=== PATIENT | female | born 1940 | race Caucasian/White ===

== ENCOUNTER 2017-04-01 13:02 | Inpatient (IN) | payer OTHER ==
[~2017-04-01] VITALS: Ht 165.1 cm; Wt 136.5 kg
[2017-04-01 13:47] LABS: Basophils # (auto) 0 uL; Basophils % (auto) 0.4 % (0.0-2.0); Eosinophils # (auto) 0.1 uL; Eosinophils % (auto) 0.8 % (0.0-7.0); Hematocrit 39.5 % (36.0-46.0); Hemoglobin 13.2 g/dL (12.2-16.2); Lymphocytes # (auto) 1.2 uL; Lymphocytes % (auto) 13.9 % (10.0-50.0); Mean Corpuscular Hemoglobin 30.1 pg (28.0-32.0); Mean Corpuscular Hgb Conc. 33.4 g/dL (32.0-36.0); Mean Corpuscular Volume 90.2 fL (80.0-100.0); Monocytes # (auto) 0.5 uL; Monocytes % (auto) 5.4 % (0.0-12.0); Neutrophils # (auto) 6.9 uL; Neutrophils % (auto) 79.5 % (37.0-80.0); Platelet Count (auto) 373 10^3/uL (140-450); Red Blood Cells 4.38 10^6/uL (4.0-5.20); Red Cell Distribution Width 14.9 % (11.8-14.3); White Blood Cell 8.7 10^3/uL (4.4-10.8)
[2017-04-01 15:04] LABS: Alanine Aminotransferase 23 U/L (13-56); Albumin 3.1 g/dL (3.4-5.0); Alkaline Phosphatase 114 U/L (45-117); Anion Gap 11 (5-15); Aspartate Aminotransferase 16 U/L (15-37); Bilirubin, Total 0.5 mg/dL (0.2-1.0); Blood Urea Nitrogen 22 mg/dL (7-18); Calcium 8.9 mg/dL (8.5-10.1); Carbon Dioxide 19 mmol/L (21-32); Chloride 108 mmol/L (98-107); GFR African American 62 mL/min; GFR Non-African American 52 mL/min; Glucose 194 mg/dL (74-106); Magnesium 2.3 mg/dL (1.6-2.6); Potassium 4.1 mmol/L (3.5-5.1); Sodium 138 mmol/L (136-145)
[2017-04-01] MEDS ORDERED: MORPHINE SULFATE 10 MG/ML INJ 1ML SDV IV PRN ×2 (16:00)
[2017-04-01] MEDS ORDERED: ONDANSETRON HCL 4 MG/2 ML VIAL IV PRN (16:00)
[2017-04-01] MEDS ORDERED: ACETAMINOPHEN 325 MG TAB PO PRN (16:00)
[2017-04-01] MEDS ORDERED: HYDROcodone-ACET 5/325MG TAB PO PRN (16:00)
[2017-04-01] MEDS ORDERED: TEMAZEPAM 15 MG CAP PO PRN (16:00)
[2017-04-01] MEDS ORDERED: DOCUSATE SOD 100 MG CAP PO PRN (16:00)
[2017-04-01] MEDS ORDERED: NITROGLYCERIN 0.4 MG SL TAB SL PRN (16:00)
[2017-04-01] MEDS ORDERED: ASPirin-EC 81 mg tab PO ONE (16:15)
[2017-04-01] MEDS ORDERED: FAMOTIDINE 20 MG TAB PO ONE (16:15)
[2017-04-01] MEDS ORDERED: ENOXAPARIN SOD 40 MG/0.4 ML SYRINGE SC ONE (16:15)
[2017-04-01] MEDS ORDERED: cloNIDine HCL 0.1 MG TAB PO PRN (16:15)
[2017-04-01] MEDS ORDERED: DEXTROSE (50%) 50ML SYRG IV PRN (16:15)
[2017-04-01] MEDS ORDERED: ENALAPRILAT 1.25 MG/ML-1ML VIAL IV PRN (16:15)
[2017-04-01] MEDS ORDERED: cefTRIAXone 1GM/50ML D5W 50 ML IV ONE (16:15)
[2017-04-01] MEDS ORDERED: MULTIPLE VITAMIN TAB PO ONE (16:15)
[2017-04-01] MEDS ORDERED: AML5T PO (16:29)
[2017-04-01] MEDS ORDERED: ASPI81TA27 PO (16:30)
[2017-04-01] MEDS ORDERED: FLUO1TAB14 PO (16:30)
[2017-04-01] MEDS ORDERED: IBU100LQ PO (16:31)
[2017-04-01] MEDS ORDERED: LEVO112T35 PO (16:32)
[2017-04-01] MEDS ORDERED: MET50T PO (16:32)
[2017-04-01] MEDS ORDERED: LISI-646 PO (16:32)
[2017-04-01] MEDS ORDERED: OMEP20CA74 PO (16:33)
[2017-04-01] MEDS ORDERED: PRAV20TA3 PO (16:34)
[2017-04-01] MEDS ORDERED: TRAM50TA2 PO (16:35)
[2017-04-01] MEDS ORDERED: CHOL20007 PO (16:37)
[2017-04-01] MEDS ORDERED: CHOLECALCIFEROL (VITD3) 1,000 UNIT TAB PO SCH (16:45)
[2017-04-01] MEDS ORDERED: traMADol HCL 50 MG TAB PO PRN (16:45)
[2017-04-01] MEDS ORDERED: IBUPROFEN 600 MG TAB PO PRN (16:45)
[2017-04-01] MEDS ORDERED: FLUoxetine HCL 20 MG CAP PO ONE (17:00)
[2017-04-01] MEDS ORDERED: LEVOTHYROXINE SODIUM 112 MCG TAB PO ONE (17:00)
[2017-04-01] MEDS ORDERED: METOPROLOL TARTRATE 25 MG TAB PO ONE (17:00)
[2017-04-01] MEDS ORDERED: ASPirin 81 mg TAB PO ONE (17:00)
[2017-04-01] MEDS ORDERED: amLODIPine BESYLATE 5 MG TAB PO ONE (17:00)
[2017-04-01] MEDS: InsuLIN REG 1unit/0.01ml Soln (100units/ml) SC SCH ×2 (17:00→22:20)
[2017-04-01] MEDS ORDERED: LISINOPRIL 20 MG TAB PO ONE (17:00)
[2017-04-01] MEDS: ACCU-CHEK COMFORT CURVE STRIP VI SCH ×2 (17:01→22:19)
[2017-04-01 17:41] LABS: Urine Bacteria MANY /hpf (None Seen); Urine Blood Negative /uL (Negative); Urine Mucus FEW (None Seen); Urine Specific Gravity 1.016 (1.001-1.035); Urine WBC 22 /hpf (0 - 5)
[2017-04-01] MEDS: Boost Glucose Control 8 Ounces PO SCH (18:04)
[2017-04-01 21:30] VITALS: BP 166/75
[2017-04-01 22:00] VITALS: BP 166/75
[2017-04-01] MEDS ORDERED: ATORVASTATIN 20 MG TAB PO SCH (22:00)
[2017-04-01] MEDS ORDERED: PRAVASTATIN SODIUM 20 MG TAB PO SCH (22:00)
[2017-04-01 22:04] VITALS: BP 173/67
[2017-04-01] MEDS: FAMOTIDINE 20 MG TAB PO SCH (22:19)
[2017-04-01] MEDS: SODIUM CHLOR 0.9% PF (SALINE LOCK) 10ML VIAL IV SCH (22:24)
[2017-04-02 04:46] VITALS: BP 136/50
[2017-04-02] MEDS: SODIUM CHLOR 0.9% PF (SALINE LOCK) 10ML VIAL IV SCH ×2 (05:56→13:24)
[2017-04-02] MEDS: ACCU-CHEK COMFORT CURVE STRIP VI SCH ×2 (06:31→11:40)
[2017-04-02] MEDS: InsuLIN REG 1unit/0.01ml Soln (100units/ml) SC SCH ×2 (06:32→11:30)
[2017-04-02 06:55] LABS: Basophils # (auto) 0 uL; Basophils % (auto) 0.4 % (0.0-2.0); Eosinophils # (auto) 0.1 uL; Eosinophils % (auto) 1.6 % (0.0-7.0); Hematocrit 37.3 % (36.0-46.0); Hemoglobin 12.5 g/dL (12.2-16.2); Lymphocytes % (auto) 26.7 % (10.0-50.0); Mean Corpuscular Hemoglobin 30.3 pg (28.0-32.0); Mean Corpuscular Hgb Conc. 33.4 g/dL (32.0-36.0); Mean Corpuscular Volume 90.9 fL (80.0-100.0); Monocytes # (auto) 0.5 uL; Monocytes % (auto) 7.4 % (0.0-12.0); Neutrophils # (auto) 4.7 uL; Neutrophils % (auto) 63.9 % (37.0-80.0); Nucleated Red Blood Cells % 0.1 %; Platelet Count (auto) 322 10^3/uL (140-450); Red Cell Distribution Width 15.1 % (11.8-14.3); White Blood Cell 7.3 10^3/uL (4.4-10.8)
[2017-04-02] MEDS ORDERED: LEVOTHYROXINE SODIUM 112 MCG TAB PO SCH (07:00)
[2017-04-02 07:10] LABS: Albumin 2.9 g/dL (3.4-5.0); Calcium 9.6 mg/dL (8.5-10.1); Potassium 5.1 mmol/L (3.5-5.1)
[2017-04-02 07:16] LABS: BUN/Creatinine Ratio 21.6; Bilirubin, Total 0.4 mg/dL (0.2-1.0); Total Protein 6.1 g/dL (6.4-8.2)
[2017-04-02 08:00] VITALS: BP 168/70
[2017-04-02] MEDS: Boost Glucose Control 8 Ounces PO SCH ×2 (08:16→12:10)
[2017-04-02] MEDS ORDERED: cefTRIAXone 1GM/50ML D5W 50 ML IV SCH (09:00)
[2017-04-02 09:43] VITALS: BP 168/70
[2017-04-02] MEDS ORDERED: LISINOPRIL 20 MG TAB PO SCH (10:00)
[2017-04-02] MEDS ORDERED: FLUoxetine HCL 20 MG CAP PO SCH (10:00)
[2017-04-02] MEDS ORDERED: OMEPRAZOLE 20MG/10ML ORAL SUSP PO SCH (10:00)
[2017-04-02] MEDS ORDERED: ASPirin 81 mg TAB PO SCH (10:00)
[2017-04-02] MEDS ORDERED: METOPROLOL TARTRATE 25 MG TAB PO SCH (10:00)
[2017-04-02] MEDS ORDERED: amLODIPine BESYLATE 5 MG TAB PO SCH (10:00)
[2017-04-02] MEDS ORDERED: ENOXAPARIN SOD 40 MG/0.4 ML SYRINGE SC SCH (10:00)
[2017-04-02] MEDS ORDERED: MULTIPLE VITAMIN TAB PO SCH (10:00)
[2017-04-02] MEDS ORDERED: ASPirin-EC 81 mg tab PO SCH (10:00)
[2017-04-02] MEDS: FAMOTIDINE 20 MG TAB PO SCH (10:19)
[2017-04-02] MEDS ORDERED: PANTOPRAZOLE 40 MG TAB PO SCH (10:26)
[2017-04-02 14:30] VITALS: BP 136/70
[2017-04-02 14:52] VITALS: BP 136/70
== END 2017-04-02 15:45 | disposition home or self-care (01) | DRG 690 ==
LOC: EDBD 13:02 → ER 13:02 → TELE 13:03 → TELE-WESTW 21:08
PROVIDERS: ADMIT Internal Medicine; ATTEND Internal Medicine Geriatric Medicine
DX: N39.0 Urinary tract infection, site not specified (principal); E44.0 Moderate protein-calorie malnutrition; E11.21 Type 2 diabetes mellitus with diabetic nephropathy; E87.2 Acidosis; E11.65 Type 2 diabetes mellitus with hyperglycemia; Z68.43 Body mass index [BMI] 50.0-59.9, adult; I12.9 Hypertensive chronic kidney disease with stage 1 through stage 4 chronic kidney disease, or unspecified chronic kidney disease; Z95.5 Presence of coronary angioplasty implant and graft; E78.5 Hyperlipidemia, unspecified; N18.3 Chronic kidney disease, stage 3 (moderate); I25.2 Old myocardial infarction; I25.10 Atherosclerotic heart disease of native coronary artery without angina pectoris; I67.2 Cerebral atherosclerosis
CPT/HCPCS: 36415; 70450; 80053; 81001; 82962; 83036; 83735; 83880; 84443; 84484; 85025; 87086; 92610; 93005; 93306; 93886; 94761; J0696; J1815; J2405